=== PATIENT | male | born 1995 | race Hispanic/Latino ===

== ENCOUNTER 2023-04-21 18:38 | Emergency (ER) | payer SELFPAY | END 2023-04-21 18:58 | disposition left against medical advice (07) | PROVIDERS: Emergency Provider Internal Medicine Hematology & Oncology | DX: Z53.21 Procedure and treatment not carried out due to patient leaving prior to being seen by health care provider (principal) | CPT/HCPCS: 99199 ==

== ENCOUNTER 2023-04-21 20:07 | Emergency (ER) | payer SELFPAY ==
--- NOTE | ~2023-04-21 | CT_ITS ---
EXAMINATION: CT abdomen pelvis w con INDICATION: Left lower quadrant pain, history of diverticulitis TECHNIQUE: Computed tomographic images of the abdomen and pelvis were obtained after the administrati on of 100 cc of Omnipaque 350 intravenous contrast. The dose-length product (DLP) was 1014.79 mGy-cm. Automated exposure control and iterative reconstruction technique were employed. COMPARISON: None available FINDINGS: The lung bases are clear. The heart size is normal. The liver, spleen, pancreas, gallbladde r, and adrenal glands are normal. The kidneys are unremarkable. No pathologically enlarged abdominal or pelvic lymph nodes are identified. No free intraperitoneal gas or evidence of bowel obstruction. T he appendix is normal. Colonic diverticulosis is present without evidence of diverticulitis. There is mild lumbar spondylosis. IMPRESSION: 1. No CT correlate for the patient's symptoms. Reviewed, dictated and finalized at location A.
[2023-04-21 20:12] VITALS: BP 141/89; PULSE 90; RESP 18; TEMP 36.2; O2SAT 100
[2023-04-21 20:22] LABS: Basophils Percent Auto 0.3 % (0.2-1.2); Eosinophils Absolute Auto 0.1 K/mm3 (0-0.3); Eosinophils Percent Auto 0.7 % (0-4.4); Hemoglobin 15.3 g/dL (14.0-18.0); Immature Granulocyte Absolute 0.03 K/mm3 (0.00-0.031); Immature Granulocyte Percent A 0.3 % (0-0.5); Lymphocytes Absolute Auto 2.51 K/mm3 (0.9-3.2); Lymphocytes Percent Auto 25.3 % (18.3-44.2); Mean Corpuscular HGB Conc 34.8 g/dl (32-36); Mean Corpuscular Hemoglobin 32.6 pg (26-34); Mean Corpuscular Volume 93.6 fl (80-100); Mean Platelet Volume 10.7 fl (7.4-10.4); Monocytes Absolute Auto 0.5 K/mm3 (0.1-0.6); Monocytes Percent Auto 4.8 % (2.6-8.5); Neutrophils Absolute Auto 6.8 K/mm3 (1.3-6.7); Neutrophils Percent Auto 68.6 % (45.5-73.1); Platelet Count Result 280 k/mm3 (150-375); Red Cell Distribution Width 12.5 % (11.5-14.5); White Blood Count 9.9 K/mm3 (4.5-10.0)
[2023-04-21 20:52] LABS: Alanine Aminotransferase 19 U/L (6-50); Albumin Level 4.8 g/dL (3.5-5.1); Alkaline Phosphatase 82 U/L (38-126); Anion Gap 8 mmol/L (8-16); Aspartate Amino Transferase 23 U/L (17-59); Blood Urea Nitrogen 15 mg/dL (9-20); Calcium 9.2 mg/dL (8.4-10.2); Carbon Dioxide 29 mmol/L (22-30); Chloride 103 mmol/L (98-107); Estimated CRCL calculation 134 ml/min; Estimated Glomerular Filt Rate > 60; Glucose 92 mg/dL (65-110); Lipase 78 U/L (23-300); Potassium 4.5 mmol/L (3.4-5.0); Sodium 140 mmol/L (137-145)
[2023-04-21 20:55] LABS: Appearance Urine Clear (Clear); Bilirubin Urine Negative (Negative); Blood Urine Negative (Negative); Color Urine Yellow (Yellow); Glucose Urine UA Negative (Negative); Ketones Urine Negative (Negative); Leukocyte Esterase Ur Negative LEU/UL (Negative); Nitrate Urine Negative (Negative); Protein Urine Negative (Negative); Urobilinogen Urine 0.2 mg/dL (<2.0); pH Urine 5.5 (5.0-9.0)
[2023-04-21 21:14] LABS: Add Urine Microscopic? NO
--- NOTE | 2023-04-22 00:26 | ED.ABDPAIN ---
HPI - Abdominal Pain General Chief Complaint: Abdominal Pain Stated Complaint: diverticulitis flare-abd pain Time Seen by Provider: 04/21/23 23:39 History of Present Illness HPI narrative: 28-year-old male with a history of diverticulitis reports for evaluation for left lower quadrant pain for the past 2 days. Patient states the pain is intermittent but over the past several has become more constant and sharp. He states he is concerned he is having another diverticulitis flare, therefore came to the ED. He is also reporting yellow soft stools for the past week. He denies fever, chest pain or shortness of breath, cough or congestion, nausea or vomiting, dysentery, dysuria or hematuria, flank pain. Related Data Allergies Allergy/AdvReac Type Severity Reaction Status Date / Time ibuprofen Allergy Mild Unknown Verified 04/22/23 00:38 Review of Systems Review of Systems: CONSTITUTIONAL: Denies fever, chills EYES: Denies visual changes, redness, or discharge. ENT: Denies rhinorrhea, congestion, sore throat, or otalgia. CARDIOVASCULAR: Denies chest pain, palpitations, or edema. RESPIRATORY: Denies cough or dyspnea. GASTROINTESTINAL: See HPI GENITOURINARY: Denies dysuria or hematuria. SKIN: Denies rash or itching. MUSCULOSKELETAL: Denies back pain, joint pain, or myalgia. NEUROLOGIC: Denies headache, numbness, dizziness, or weakness. PSYCHIATRIC: Denies anxiety or depression. Exam Narrative: GENERAL: Well-appearing, in no acute distress. Patient resting comfortably in exam bed. He is pleasant and conversational. HEAD: Normocephalic EYES: PERRLA ENT: Nares clear. Mucous membranes moist. Oropharynx without tonsillar hypertrophy exudate or other lesions. NECK: Supple. CHEST: No respiratory distress. Clear to auscultation, no adventitious breath sounds. HEART: Regular rate and rhythm. No murmur heard. Normal peripheral pulses. ABDOMEN: Normal active bowel sounds. Abdomen soft with mild tenderness in the left lower quadrant. No guarding, rebound or rigidity. No CVA tenderness. No overlying skin changes. EXTREMITIES: Normal range of motion. No edema. SKIN: Warm, dry, no rash. NEURO: No focal deficits. Alert and oriented x3. PSYCH: Normal mood and affect. Course Vital Signs Vital signs: Vital Signs Temperature 97.2 F L 04/21/23 20:12 Pulse Rate 90 04/21/23 20:12 Respiratory Rate 18 04/21/23 20:12 Blood Pressure 141/89 H 04/21/23 20:12 Pulse Oximetry 100 04/21/23 20:12 Oxygen Delivery Room Air 04/21/23 20:12 Temperature 97.2 F L 04/21/23 20:12 Pulse Rate 80 04/22/23 01:29 Respiratory Rate 16 04/22/23 01:29 Blood Pressure 140/85 04/22/23 01:29 Pulse Oximetry 99 04/22/23 01:29 Oxygen Delivery Room Air 04/21/23 20:12 MDM - Abdominal Pain MDM Narrative Medical decision making narrative: 28-year-old male with a history of diverticulitis reports for evaluation for left lower quadrant pain for the past 2 days. Patient is well-appearing on exam. Abdomen is soft with mild tenderness in the left lower quadrant, no rebound, guarding or rigidity. Vitals are stable. Labs significant for no leukocytosis or anemia. Chemistries unremarkable. Urinalysis unremarkable. Lipase normal. CT abdomen pelvis shows diverticula without evidence of diverticulitis. There is some thickening of the urinary bladder wall which may be due to hypertrophy cannot exclude cystitis. Again urinalysis is unremarkable. There is CT evidence of mildly dilated predominantly fluid-filled loops of bowel, some of these demonstrate wall thickening which may be due to an ileus, cannot exclude nonspecific enteritis. Patient received IV fluids and Tylenol with improvement in symptoms. Labs and imaging discussed. His exam is again reassuring and he is tolerating p.o. intake in the ED without difficulty. I advised him to drink clear liquids for the next 24 to 48 hours with slow progression to a brat diet to allow
[2023-04-22] MEDS: ACETAMINOPHEN 500 MG TABLET 1000 MG PO (00:39)
[2023-04-22] MEDS: SODIUM CHLORIDE 0.9% IV 1,000 ML 999 ML IV CONT (00:39)
[2023-04-22 00:41] VITALS: BP 137/81; PULSE 75; RESP 20; O2SAT 100
[2023-04-22 01:29] VITALS: BP 140/85; PULSE 80; RESP 16; O2SAT 99
== END 2023-04-22 02:42 | disposition home or self-care (01) ==
PROVIDERS: Emergency Medicine; Emergency Provider Physician Assistant
DX: K52.9 Noninfective gastroenteritis and colitis, unspecified (principal)
CPT/HCPCS: 36415; 74177; 80053; 81003; 83690; 85025; 96360; 99284; A9270; J7030; Q9967